=== PATIENT | female | born 1990 | race Caucasian/White ===

== ENCOUNTER → 2017-12-25 16:10 | Outpatient (CLI) | payer OTHER, SELFPAY ==
[2017-12-25 19:26] LABS: Chlamydia Trachomatis by PCR Negative (Negative); Neisserai gonorrhoeae by PCR Negative (Negative); Probe Check PASS; Sample Adequacy Control PASS; Specimen Processing Control PASS
== END ==
PROVIDERS: Visit Provider Obstetrics & Gynecology
DX: Z11.3 Encounter for screening for infections with a predominantly sexual mode of transmission (principal)
CPT/HCPCS: 87491; 87591

== ENCOUNTER → 2018-06-04 09:46 | Outpatient (CLI) | payer OTHER, SELFPAY ==
[2018-06-04 11:07] LABS: Glucose GTT-Gestation. Fasting 76 mg/dL (<105)
[2018-06-04 11:34] LABS: Glucose GTT-Gestational 1 Hr 145 mg/dL (<190)
[2018-06-04 13:45] LABS: Glucose GTT-Gestational 3 Hr 112 L (<145)
[2018-06-04 15:47] LABS: Glucose GTT-Gestational 2 Hr 118 mg/dL (<165)
== END ==
PROVIDERS: Family Provider Family Medicine; PCP Family Medicine; Referring Provider Obstetrics & Gynecology; Visit Provider Obstetrics & Gynecology
DX: O24.912 Unspecified diabetes mellitus in pregnancy, second trimester (principal); Z3A.00 Weeks of gestation of pregnancy not specified
CPT/HCPCS: 36415; 82951; 82952

== ENCOUNTER 2018-07-27 00:03 | Inpatient (IN) | payer OTHER, SELFPAY ==
[2018-07-26 23:37] VITALS: BMI 31.1
[2018-07-27 00:01] LABS: ROM Internal Control Test YES-OK TO RESULT pt. (Internal QC)
[2018-07-27 00:02] LABS: ROM Patient Test POSITIVE (Negative)
[2018-07-27] MEDS: Lactated Ringers 1,000 ML 50 ML IV ×3 (00:45→16:56)
[2018-07-27 00:54] LABS: Hematocrit 37.2 % (37-47); Hemoglobin 12.7 g/dl (12.0-15.0); Mean Corp Hgb Conc 34.1 g/gl (32-36); Mean Corpuscular Hgb 30.4 pg (27.0-32.0); Mean Platelet Vol. 10.4 fl (6.2-12.0); Platelet Count 177 K/mm3 (150-450); RBC Distribution Width CV 13.7 % (11.6-14.6); RBC Distribution Width SD 43.7 fl (35.1-43.9); Red Blood Count 4.18 M/mm3 (4.2-5.4); Scan Indicated on CBC? Y/N NO; White Blood Count 12.9 K/mm3 (4.4-11.0)
[2018-07-27] MEDS: 0.9% Saline Lock 10 ML Syringe IV (05:52)
[2018-07-27] MEDS: Oxytocin 30 units/NS 500 ml 30 UNITS/500 ML IV.SOLN IV (06:10)
--- NOTE | 2018-07-27 12:45 | PCM.PN.BLA ---
Progress Note LABOR PROGRESS NOTE Contractions have intensified since this morning. She tolerates CLD. AVSS GEN - NAD, AAO x 3 FHR 150, moderate variability, + accelerations, no decelerations TOCO 4-5/10 min SVE 3/80/-3, moderate and midposition A/P: 28yo G1 @ 38 5/7wga with PROM, on pitocin, Cat I FHR -gHTN -Forebag palpable and ruptured, IUPC placed -Will continue pitocin and titrate as tolerated by mother and fetus -Maternal and statuses reassuring
[2018-07-27] MEDS: Nalbuphine 10 MG/ML Ampul IV (14:52)
[2018-07-27] MEDS: fentaNYL-bupivacaine (epidural) 100 ML BAG EPIDURAL (16:45)
--- NOTE | 2018-07-27 18:32 | PCM.PN.BLA ---
Progress Note LABOR PROGRESS NOTE Comfortable with epidural. Had some nausea and emesis x 1. Denies headache, vision changes or abdominal pain. AVSS GEN - NAD, AAO x 3 FHR 130, moderate variability, + accelerations, no decelerations TOCO 4/10 min SVE 5/80/-2, cephalic and BETH A/P: 28yo G1 @ 38 6/7 wga in labor on pitocin, gHTN, Cat I FHR -Continue pitocin as tolerated by mother and fetus -Maternal and statuses reassuring
[2018-07-27] MEDS: Ondansetron 4 MG/2 ML Vial IV (19:30)
[2018-07-28] VITALS (24 sets, daily range): BP systolic 123–140; BP diastolic 61–92; PULSE 112–130; RESP 11–18; TEMP 36.1–37.4; O2SAT 97–100
[2018-07-28] MEDS: Lactated Ringers 1,000 ML 50 ML IV (00:47)
[2018-07-28] MEDS: Sodium Citrate/Citric Acid 30 ML UDC PO (03:00)
[2018-07-28] MEDS: Cefazolin 2 GM in 0.9% Normal Saline 100 ML IV (03:05)
[2018-07-28] MEDS: Lactated Ringers 1,000 ML 100 ML IV ×3 (03:22→16:54)
--- NOTE | 2018-07-28 03:22 | PLAC_PTH ---
PATIENT: IONA ABRAMS LOC: [facility] U#:[id number] AGE/SX: 28/F ROOM: WP005 RE07/27/[address]: Dr. Sabino Stanton MD : 1990 BED: 1 DIS: 07/31/2018 SPEC #: [id number] RECD: 07/28/18 04:45 STATUS: ROJELIO REIsidra #: [id number] DIANA: 07/28/18 03:[address]: Sabino Stanton DEPT: SURGICAL PATHOLOGY RECD BY: Ton Hobson ENTERED: 07/28/18 09:20 SP TYPE: PLACENTA OTHR DR: Dr. Julio Cesar Centeno MD Tissues: Placenta, NOS Procedures: Surgery Specimen Level V HEADER OPERATION: Primary section PRE-OP DIAGNOSIS: section TISSUE SUBMITTED: Placenta MICROSCOPIC DIAGNOSIS Murillo placenta (457 gm): Umbilical cord - trivascular with no inflammation. Placental membranes - mild chronic deciduitis. Placental disc - organizing intraparenchymal hemorrhage, Guillermo change and focal intervillous congestion. AM:ryley 07/30/18 MICROSCOPIC DESCRIPTION Slides are reviewed. GROSS DESCRIPTION SPECIMEN: PLACENTA / CLINICAL INFORMATION: A. Weight: 3.04 kg B. Gestational Age: 39 weeks C. Sex: Male PLACENTAL WEIGHT (POST FIXATION): 457 gm PLACENTAL DIMENSIONS: 16 x 16 x 3.5 cm PLACENTAL SHAPE: Usual ovoid PLACENTAL WEIGHT FOR GESTATIONAL AGE: Within 10-99th percentile MEMBRANES - Present. The membranes are fragmented and most of the membranes are present detached from the body of the placenta. A. Insertion: Marginal B. Site of rupture from edge: Distance of rupture cannot be assessed due to fragmented nature of the membranes. C. Color of membrane: Fountain-malone D. Abnormalities: None UMBILICAL CORD - Present A. Color: Fountain-malone B. Insertion: Paracentral C. Length: 43 cm D. Diameter: Up to 1.2 cm E. Number of vessels: Three F. Abnormalities: None PLACENTAL DISC - Present A. Color of surface: Fountain-malone B. surface abnormalities: None C. Maternal cotyledons: Intact with minimal tears. The maternal surface is partly disrupted. D. Attached retro placental clot: No clot E. Cut surface: Dark red and spongy F. Lesions: Sections reveal two fountain, indurated lesions measuring 0.3 and 1 cm in greatest dimension. G. Separate clot: Absent SECTIONS SUBMITTED: 1. Membrane roll 2. Cord, maternal end 3. Cord, end 4. Placental disc, and maternal surfaces, smaller lesion 5. Placental disc, and maternal surfaces, larger lesion 6. Placental disc, and maternal surfaces SHARMILA:ryley 07/29/18 TC:3 CPT: 20648
[2018-07-28] MEDS: Methylergonovine 0.2 MG/ML Ampul IM (03:25)
[2018-07-28] MEDS: Ketorolac 30 MG/ML Syringe IV ×3 (08:53→21:10)
[2018-07-28] MEDS: 0.9% Saline Lock 10 ML Syringe IV ×2 (08:54→15:07)
--- NOTE | 2018-07-28 10:29 | NURSING ---
1000 Baby transferred to [facility] for low blood sugars this am. Mom introduced to breast massage and expression and follow up pumping to help with stimulation and accelerating her milk production. Mom had great breast changes in which is great news too. Mom was able to pump about 4mls and enough for a few swabs of colostrum. Mom to rest for a couple hours then hopes to visit SCN to do some skin to skin with her baby. Will continue to encourage with feedings. Estelle GONZALEZ IBCLC
--- NOTE | 2018-07-28 12:58 | PCM.OP.BLANK ---
Operative Report Date of Procedure: 07/28/18 PROCEDURE: Primary C section. Preoperative diagnosis: 38 6/7 wk EGA SROM, Labor. CPD Postop diagnosis: 38 6/7 wk EGA SROM, Labor. CPD Anesthesia: Epidural, Missy Mccann MD Surgeon: Kortney Oswald MD Licensed Professional Counselor: KIMMY Weber EBL 600 cc Complications: none Drains: Lo draining blood tinged urine to bloody urine. Fluids: replacement LR Findings: At amniotomy, clear fluid was noted. Murillo viable male in vertex presentation, direct OP and deeply wedged into maternal pelvis. Apgars 7/9, Baby weight: 6# 11 oz There was a normal appearing uterus, fallopian tubes and ovaries bilaterally. End stage meconium was noted at delivery. PATH: Placenta to path. Routine cord gases were sent. Narrative account: Patient is a female who presents with SROM , unfavorable cervix. Admitted for labor, and Pitocin augmented to complete and pushing for 5 hrs with no further descent noted. On exam: prominent sacrum, significant molding of vtx. Direct OP. Urine in Lo catheter with blood tinge noted. After the risks, benefits and alternatives of the procedure were reviewed with the patient, informed consent was obtained. The patient was taken to the Operating room with an IV running, and placed in dorsal supine position with leftward displacement of the uterus. Once the epidural had been dosed to surgical levels, she was briefly frog-legged for vaginal vault prep and then repositioned again to dorsal supine position with leftward displacement of the uterus and prepped and draped in the usual sterile fashion. Once the epidural was deemed adequate, a Pfannenstiel skin incision was created using the knife. The incision was carried down to the rectus fascia using the knife. The fascia was nicked in the midline. The fascial incision was extended bilaterally using curved Lackey scissors. The superior aspect of the fascial incision was grasped with Bubba clamps and tented up and the underlying rectus abdominal muscles were dissected free. In a similar manner, the inferior aspect of the facial incision was grasped with Bubba clamps tented up and the underlying rectus abdominal muscles were dissected free. The rectus abdominis muscles were in the midline and the peritoneum was identified and entered by blunt dissection high in the incision. The peritoneum was stretched laterally and a bladder blade was inserted. A bladder flap was created along the lower uterine segment with Metzenbaum scissors . The uterine incision was then created using Metzenbaum scissors. The operators fingertips were used to extend the uterine incision by blunt dissection in a caudad- cephalad orientation . Very minimal clear fluid was noted at amniotomy. The vertex was then delivered atraumatically through the incision with the aide of the nurse applying pressure from below. A nuchal cord times two was reduced at delivery. The OP and nares were bulb suctioned on the abdomen. The shoulders delivered easily . The cord clamped x two and cut. And the infant was handed off to the nurse awaiting delivery after briefly showing him to his parents. The baby had poor tone and poor cry. End stage meconium was noted. The cord was doubly clamped for later cord blood collection. The placenta was then delivered. The uterus was exteriorized and cleared of clots and debris . The uterine incision was repaired with 1 Vicryl in a running locked fashion. A second imbricating layer was then placed, using 1 Monocryl in running nonlocked fashion. Figure of eight and interrupted stitches of 1-0 Vicryl were placed along the incision for additional hemostasis as needed. Adequate hemostasis was noted. At this point the uterus was returned to the abdominal cavity. The pelvis and abdomen were copiously irrigated. The gutters were cleared of clots and debris and the incision at the uterus was inspected. Jud was applied along the entire incision for continued hemostasis. Excellent hemostasis was noted. The peritoneum and rectus abdominis muscles were reapproximated in the midline with a series of interrupted stitches of 1 Vicryl. Jud was applied to this layer. Excellent hemostasis was noted at the subfascial space The fascia was closed in a running nonlocked fashion with a Stratofix. The Subcutaneous fatty tissue was Bovie cauterized as needed for hemostasis. This layer was irrigated also. Jud was liberally dusted at this layer to prevent seroma formation. This layer was then reapproximated in a single layer closure of running 3-0 Vicryl to eliminate space. The skin edges were closed in a Subcuticular stitch of 4-0 Monocryl. The incision was cleansed. Cavilon, Steristrips, and Mepilex dressing were applied to the skin . The patient was then transferred to the recovery room bed in stable condition after tolerating the procedure well. Sponge, lap, needle and instrument counts correct times two. Medications given preop and intraoperatively included: Ancef 2 gm given physicians and surgeons to the operating room. The patient also received Pitocin given IV after cord clamp, and Toradol 30 mg IV times one. Methergine 0.2 mg IM in R thigh also given prophylactically for hemostasis as pt on high dose Pitocin all day. For a complete listing of medications given preop and intraoperatively, please see the anesthesia record.
--- NOTE | 2018-07-28 13:06 | NURSING ---
This nursing program coordinator reviewed the charting completed by Josi Parikh, student nurse.
--- NOTE | 2018-07-28 13:22 | NURSING ---
mother instructed and educated on importance of pumping for stimulation with infant in scn. mother able to start initial pumping session at 1000 with disaster recovery consultant and again at 1300. Colostrum swabbed and sent to scn for use.
--- NOTE | 2018-07-28 16:00 | NURSING ---
EPIDURAL CATHETER REMOVED WITH BLUE TIP INTACT.
[2018-07-28 16:03] LABS: Hematocrit 31.5 % (37-47); Hemoglobin 10.5 g/dl (12.0-15.0); Mean Corp Hgb Conc 33.3 g/gl (32-36); Mean Corpuscular Hgb 29.5 pg (27.0-32.0); Mean Corpuscular Volume 88.5 fL (81-99); Mean Platelet Vol. 10.3 fl (6.2-12.0); Platelet Count 150 K/mm3 (150-450); RBC Distribution Width CV 13.9 % (11.6-14.6); RBC Distribution Width SD 45.4 fl (35.1-43.9); Red Blood Count 3.56 M/mm3 (4.2-5.4); White Blood Count 18.6 K/mm3 (4.4-11.0)
[2018-07-28 16:05] LABS: Scan Indicated on CBC? Y/N NO
[2018-07-28 16:19] LABS: ALB/GLOB Ratio 0.6 RATIO (0.9-2.4); AST(SGOT) 35 U/L (15-37); Alanine Aminotransfer ALT/SGPT 49 U/L (13-56); Albumin, Serum 1.9 g/dL (3.2-5.0); Alkaline Phosphatase 98 U/L (45-117); Anion Gap 9 (5-15); BUN 7 mg/dL (7-18); BUN/Creat Ratio 10.3 RATIO (10-20); Calcium,Total 7.9 mg/dL (8.5-10.1); Chloride 110 mmol/L (98-107); Creatinine, Serum 0.68 mg/dL (0.55-1.02); EST Glomerular Filtration Rate 109 mL/min (>60); Est Glom Filt Rate - Afr Amer 132 mL/min (>60); Estimated Creatinine Clearance 97.42 ml/min; Globulin 3.4 g/dL (2.2-4.2); Glucose 96 mg/dL (74-106); Potassium 3.9 mmol/L (3.5-5.1); Protein, Total 5.3 g/dL (6.4-8.2); Sodium Level 141 mmol/L (136-145); Thyroid Stim Hormone (TSH) 2.16 uIU/mL (0.358-3.74)
[2018-07-29 00:45] VITALS: BP 129/79; PULSE 117; RESP 18; TEMP 36.3; O2SAT 100
[2018-07-29] MEDS: Ketorolac 30 MG/ML Syringe IV ×4 (02:49→21:31)
[2018-07-29] MEDS: 0.9% Saline Lock 10 ML Syringe IV ×3 (02:49→21:31)
[2018-07-29 03:00] VITALS: BP 124/78; PULSE 112; RESP 18; TEMP 36.7; O2SAT 100
[2018-07-29 05:12] LABS: Hematocrit 34.1 % (37-47); Hemoglobin 11.3 g/dl (12.0-15.0); Mean Corp Hgb Conc 33.1 g/gl (32-36); Mean Corpuscular Hgb 29.7 pg (27.0-32.0); Mean Corpuscular Volume 89.7 fL (81-99); Mean Platelet Vol. 9.6 fl (6.2-12.0); Platelet Count 154 K/mm3 (150-450); RBC Distribution Width SD 45.7 fl (35.1-43.9); White Blood Count 20.7 K/mm3 (4.4-11.0)
[2018-07-29 05:13] LABS: Scan Indicated on CBC? Y/N NO
--- NOTE | 2018-07-29 07:29 | PN.OBGYN_ITS ---
Subjective: Pain is controlled. OOB, tolerates PO. Denies heavy lochia. was admitted to [facility] for low blood sugars. Started nursing yesterday evening and infant latching well. Denies palpitations apart from my normal heart rate. Objective: AVSS - Physical Exam General: Alert, Oriented x3, Cooperative, No apparent distress HEENT: Atraumatic, Normocephalic Lungs: Clear to auscultation, Normal air movement Cardiovascular: Regular rate, Regular Rhythm, Normal S1, Normal S2 Abdomen: Bowel Sounds Present, Soft, Non Tender, Non-Distended, - - Fundus firm and nontender, incisional dressing dry and intact with approximately 2cm area of saturation, Lochia scant Extremities: No Calf Tenderness, - - trace LE edema Neurological: Neuro grossly intact Psych/Mental Status: Normal Affect, Appropriate, Alert and oriented to time, place, person, mood and affect Vital Signs Temp Pulse Resp BP Pulse Ox 98.0 F 112 H 18 124/78 H 100 07/29/18 03:00 07/29/18 03:00 07/29/18 03:00 07/29/18 03:00 07/29/18 03:00 Oxygen Delivery Method Room Air Weight: 77.292 kg Body Mass Index (BMI) 31.1 Intake and Output for Last 24 Hours 07/27/18 07/28/18 07/29/18 23:59 23:59 23:59 Intake Total 1642 / 1642 3283 / 3283 Output Total 800 / 800 3850 / 3850 1300 / 1300 Balance 842 / 842 -567 / -567 -1300 / -1300 Laboratory Tests Past 24 Hrs 07/28/18 07/28/18 07/29/18 15:15 15:15 05:10 WBC 18.6 H 20.7 H RBC 3.56 L 3.80 L Hgb 10.5 L 11.3 L Hct 31.5 L 34.1 L MCV 88.5 89.7 MCH 29.5 29.7 MCHC 33.3 33.1 RDW 13.9 14.0 RDW Differential 45.4 H 45.7 H Plt Count 150 154 MPV 10.3 9.6 Sodium 141 Potassium 3.9 Chloride 110 H Carbon Dioxide 22.0 Anion Gap 9 BUN 7 Creatinine 0.68 Estim Creat Clear Calc 97.42 Est GFR (MDRD) Af Amer 132 Est GFR (MDRD) Non-Af 109 BUN/Creatinine Ratio 10.3 Glucose 96 Calcium 7.9 L Total Bilirubin 0.40 AST 35 ALT 49 Alkaline Phosphatase 98 Total Protein 5.3 L Albumin 1.9 L Globulin 3.4 Albumin/Globulin Ratio 0.6 L TSH 2.16 Medical Necessity - Tobacco Use Smoking Status: Never smoker Assessment/Plan 28yo POD#1 s/p PLTCS doing well. -A positive -Labs reviewed with leukocytosis and mild tachycardia - no evidence of infection or bleed - wbc likely 2/2 labor and delivery. Patient with known history of baseline tachycardia even before . HR throughout third trimester mostly 100-110 bpm. Will continue to monitor vitals. -/pumping -Routine care -Had Tdap and flu shot during
[2018-07-29 08:00] VITALS: BP 132/80; PULSE 106; RESP 16; TEMP 36.6
[2018-07-29 14:21] VITALS: BP 130/75; PULSE 82; RESP 16; TEMP 37.3
[2018-07-29 20:00] VITALS: BP 131/89; PULSE 108; RESP 16; TEMP 37.4; O2SAT 99
[2018-07-30 01:35] VITALS: BP 133/93; PULSE 98; RESP 18; TEMP 36.3; O2SAT 99
[2018-07-30] MEDS: Ketorolac 30 MG/ML Syringe IV (03:25)
[2018-07-30] MEDS: 0.9% Saline Lock 10 ML Syringe IV (03:26)
[2018-07-30 04:51] LABS: Hematocrit 29.5 % (37-47); Hemoglobin 9.7 g/dl (12.0-15.0); Mean Corp Hgb Conc 32.9 g/gl (32-36); Mean Corpuscular Hgb 29.9 pg (27.0-32.0); Mean Platelet Vol. 9.9 fl (6.2-12.0); Platelet Count 140 K/mm3 (150-450); RBC Distribution Width CV 13.7 % (11.6-14.6); RBC Distribution Width SD 45.1 fl (35.1-43.9); Red Blood Count 3.24 M/mm3 (4.2-5.4); White Blood Count 13.8 K/mm3 (4.4-11.0)
[2018-07-30 04:52] LABS: Scan Indicated on CBC? Y/N NO
[2018-07-30 09:00] VITALS: BP 129/85; PULSE 98; RESP 18; TEMP 36.6; O2SAT 95
[2018-07-30] MEDS: Acetaminophen 325 MG Tablet PO (13:23)
[2018-07-30 13:24] VITALS: BP 129/93; PULSE 100; RESP 16; TEMP 36.6; O2SAT 98
--- NOTE | 2018-07-30 17:30 | PCM.PN.BLA ---
Progress Note PROGRESS NOTE 28yo POD#2 s/p PLTCS. Visited patient room three times and patient not present. Patient found in special care nursery. She reported no complaints, was going well and her pain was controlled. Continue routine postop care.
[2018-07-30 20:50] VITALS: BP 137/88; PULSE 101; RESP 16; TEMP 36.6; O2SAT 98
[2018-07-31 02:54] VITALS: BP 132/90; PULSE 90; RESP 16; TEMP 36.7; O2SAT 96
[2018-07-31 08:00] VITALS: BP 139/91; PULSE 100; RESP 18; TEMP 36.9; O2SAT 98
--- NOTE | 2018-07-31 08:50 | PCM.PN.OB ---
Subjective: Doing well, no complaints. Objective: avss - Physical Exam General: Alert, Oriented x3, Cooperative, No apparent distress HEENT: Atraumatic, Normocephalic Lungs: Normal air movement Abdomen: Soft, Non Tender, Non-Distended, - - Fundus firm and nontender, lochia scant, incisional dressing dry and intact Extremities: No Calf Tenderness, - - +1 b/l LE edema Neurological: Neuro grossly intact Psych/Mental Status: Normal Affect, Appropriate, Alert and oriented to time, place, person, mood and affect Vital Signs Temp Pulse Resp BP Pulse Ox 98.0 F 90 16 132/90 H 96 07/31/18 02:54 07/31/18 02:54 07/31/18 02:54 07/31/18 02:54 07/31/18 02:54 Oxygen Delivery Method Room Air Weight: 77.292 kg Body Mass Index (BMI) 31.1 Intake and Output for Last 24 Hours 07/29/18 07/30/18 07/31/18 23:59 23:59 23:59 Output Total 1550 / 1550 Balance -1550 / -1550 Medical Necessity - Tobacco Use Smoking Status: Never smoker Assessment/Plan 28yo POD#3 s/p PLTCS doing well. -A positive - -Routine care -Had Tdap and flu shot during -d/c home today
--- NOTE | 2018-07-31 08:56 | DCINST_ITS ---
Discharge Diet: No Restrictions Discharge Activity: Return to Normal Activity, May Shower, - - No tub baths, no douching, no intercourse May resume sexual activity in: 6 weeks Lifting Restrictions: 10 lb Call your doctor if your incision/area has: Continuous Slow Oozing, Sudden Increased Bleeding, Increased Pain/ Swelling, Increased Redness, Foul Smelling Discharge Call your doctor if you observe: Fever of 101 or Higher, Inability to urinate, Inability to have a bowel movement, Using more than one pad per hour, Shortness of breath, Chest pain, Calf discomfort, Uncontrolled pain Suture Line Care: Avoid Pulling/Pushing Cleanse incision/area with: Soap & Water Additional Instructions: If you experience any of the following, contact your healthcare provider. * Bleeding that soaks a pad every hour for 2 hours * Fever 100.4 or higher * Unrelieved incision or abdominal pain * Swelling, redness, discharge or bleeding from your incision or episiotomy site * Your incision begins to separate * Problems urinating (including inability to urinate or burning while urinating). * Visual changes * Severe headache * Flu-like symptoms * Pain or redness in one of both of your breasts * Pain, warmth, tenderness or swelling in your legs, especially the calf area * Frequent nausea and vomiting * Symptoms of depression or anxiety If you experience any of the following, call 911 or go to the nearest Emergency Room. * Chest pain * Problems breathing * Seizure activity * Partial or complete paralysis of a body part, slurred speech, weakness or drooping of the face, or a sudden inability to walk or hold your balance Allergies/Adverse Reactions: Allergies No Known Allergies Allergy (Verified 07/26/18 23:38) Medications to take at Discharge Prenatabs FA 1 tab PO DAILY 07/26/18 Docusate Sodium [Colace] 100 mg PO BID PRN PRN #60 capsule 07/31/18 Naproxen [Naprosyn] 1 - 2 tab PO Q8H PRN #30 tablet 07/31/18 The following prescriptions were given: Docusate Sodium [Colace] 100 mg PO BID PRN PRN #60 capsule PRN Reason: Constipation Naproxen [Naprosyn] 1 - 2 tab PO Q8H PRN #30 tablet PRN Reason: Pain Follow-Up: Call to make an appointment with your doctor for an incision check in 1-2 weeks. You will also need a 6 week post- follow up appointment. Test results from this visit will be discussed in further detail at your follow- up appointment, if applicable. Please Follow Up With: Scarlet Grewal MD When: 7-10 days Primary Care Physician: Julio Cesar Centeno MD [Primary Care Provider] -
[2018-08-02 15:25] LABS: Pathology Specimen OB SEE PATHOLOGY REPORT
[2018-08-02 15:25] LABS: Pathology Specimen OB SEE PATHOLOGY REPORT
--- NOTE | 2018-08-05 12:18 | PCM.DC.SUM ---
Discharge Date and Diagnosis Date of Admission: 07/27/18 Date of Discharge: 07/31/18 Hospital Course and Treatment Consultations 07/27/18 00:08 Consult: Anesthesia Routine Comment: Reason For Exam: Operations: - - section Summary of Care Provided: The patient is a 28 year old F admitted at 38 5/7 wga with PROM. She progressed with pitocin augmentation to fully dilated and subsequently had a section for arrest of descent. Her post-operative course was unremarkable and she was discharged to home on post-operative day #3. - Physical Exam Vital Signs Temp Pulse Resp BP Pulse Ox 98.4 F 100 18 139/91 H 98 07/31/18 08:00 07/31/18 08:00 07/31/18 08:00 07/31/18 08:00 07/31/18 08:00 Oxygen Delivery Method Room Air Weight: 77.292 kg Body Mass Index (BMI) 31.1 Discharge Diet: No Restrictions Discharge Activity: Return to Normal Activity, May Shower, - - No tub baths, no douching, no intercourse May resume sexual activity in: 6 weeks Call your doctor if your incision/area has: Continuous Slow Oozing, Sudden Increased Bleeding, Increased Pain/ Swelling, Increased Redness, Foul Smelling Discharge Call your doctor if you observe: Fever of 101 or Higher, Inability to urinate, Inability to have a bowel movement, Using more than one pad per hour, Shortness of breath, Chest pain, Calf discomfort, Uncontrolled pain Suture Line Care: Avoid Pulling/Pushing Cleanse incision/area with: Soap & Water Home Medications: Medications to take at Discharge Prenatabs FA 1 tab PO DAILY 07/26/18 Docusate Sodium [Colace] 100 mg PO BID PRN PRN #60 capsule 07/31/18 Naproxen [Naprosyn] 1 - 2 tab PO Q8H PRN #30 tablet 07/31/18 Following Prescrptions Were Given to Patient: Docusate Sodium [Colace] 100 mg PO BID PRN PRN #60 capsule PRN Reason: Constipation Naproxen [Naprosyn] 1 - 2 tab PO Q8H PRN #30 tablet PRN Reason: Pain Primary Care Physician: Julio Cesar Centeno MD [Primary Care Provider] - Please Follow Up With: Scarlet Grewal MD When: 7-10 days Medical Necessity - Tobacco Use Smoking Status: Never smoker Meaningful Use Info Meaningful Use Diagnoses (Choose all that apply): None applicable
--- NOTE | 2018-08-08 16:13 | NURSING ---
patient doing well , baby breast feeding and gaining weight
== END 2018-07-31 10:30 | disposition home or self-care (01) | DRG 788 ==
LOC: WPOUT 00:03
PROVIDERS: Obstetrics & Gynecology; Admitting Provider Obstetrics & Gynecology; Family Provider Family Medicine; PCP Family Medicine; Referring Provider Obstetrics & Gynecology; Visit Provider Obstetrics & Gynecology
DX: O42.02 Full-term premature rupture of membranes, onset of labor within 24 hours of rupture (principal); O69.81X0 Labor and delivery complicated by cord around neck, without compression, not applicable or unspecified; O77.0 Labor and delivery complicated by meconium in amniotic fluid; Z3A.38 38 weeks gestation of pregnancy; Z37.0 Single live birth; O90.89 Other complications of the puerperium, not elsewhere classified; D72.829 Elevated white blood cell count, unspecified; R00.0 Tachycardia, unspecified
CPT/HCPCS: 59025; 59050; 80053; 84112; 84443; 85027; 86850; 86900; 88307; 94762; 99218; J7120; A4216; G0378; J2405

== ENCOUNTER → 2020-07-31 13:39 | Outpatient (CLI) | payer OTHER, SELFPAY ==
[2018-07-26 23:37] VITALS: BMI 31.1
[2020-07-31 16:06] LABS: Free T3 3.3 pg/mL (2.18-3.98); T4 Free Direct 1.25 ng/dL (0.76-1.46); Thyroid Stim Hormone (TSH) 1.29 uIU/mL (0.358-3.74)
== END ==
PROVIDERS: PCP Family Medicine; Visit Provider Family Medicine
DX: R00.0 Tachycardia, unspecified (principal)
CPT/HCPCS: 36415; 84439; 84443; 84481

== ENCOUNTER → 2022-01-14 | Outpatient (CLI) | payer BC, SELFPAY ==
[2022-01-18 11:35] LABS: HPV APTIMA, High Risk Negative (Negative)
== END | disposition home or self-care (01) ==
LOC: LABSPEC 13:11
PROVIDERS: PCP Family Medicine; Visit Provider Obstetrics & Gynecology
DX: Z12.4 Encounter for screening for malignant neoplasm of cervix (principal)
CPT/HCPCS: 87624; 88175; G0145